=== PATIENT | female | born 1955 | race African-American/Black ===

== ENCOUNTER 2017-06-18 12:07 | Emergency (ER) | payer BC ==
[~2017-06-18] VITALS: Ht 162.6 cm; Wt 77.0 kg
[2017-06-18] MEDS ORDERED: KETOROLAC 60MG/2ML VIAL IM STA (14:23)
[2017-06-18] MEDS ORDERED: METOCLOPRAMIDE HCL 5MG TABLET PO ONE (14:30)
[2017-06-18 14:44] LABS: CLARITY URINE CLEAR (CLEAR); COLOR URINE YELLOW (YELLOW); GLUCOSE URINE NEGATIVE (NEGATIVE); KETONES URINE NEGATIVE (NEGATIVE); LEUKOCYTE ESTERASE URINE 2+ (NEGATIVE); NITRITE URINE NEGATIVE (NEGATIVE); OCCULT BLOOD URINE 1+ (NEGATIVE); PH URINE 5.5 (4.5-8.0); PROTEIN URINE NEGATIVE (NEGATIVE); SPECIFIC GRAVITY URINE 1.019 (1.005-1.030); UROBILINOGEN URINE 0.2 E.U./dL (0.2-1.0)
[2017-06-18 14:50] LABS: BASOPHILS % 0.3 % (0.0-2.0); EOSINOPHILS % 1.3 % (0.0-5.0); HEMATOCRIT. 37.5 % (36.0-48.0); HEMOGLOBIN. 12.5 g/dL (12.0-16.0); LYMPHOCYTES % 37.1 % (20.0-50.0); MEAN CORPUSCULAR VOLUME 81.2 fL (81.0-99.0); MEAN PLATELET VOLUME 8.9 fl (7.4-10.4); MONOCYTES % 8.3 % (2.0-8.0); PLATELET 197 x1000/uL (130-400); RED BLOOD CELL COUNT 4.62 mill/uL (4.2-5.4); RED CELL DISTRIBUTION WIDTH 13.3 % (11.6-14.6)
[2017-06-18 14:56] LABS: INR 1.1; PROTHROMBIN TIME 11.4 sec
[2017-06-18 15:04] LABS: CHLORIDE 105 mEq/L (98-107)
[2017-06-18 15:12] LABS: CARBON DIOXIDE 30 mEq/L (21-32)
[2017-06-18 16:01] VITALS: BP 140/67
== END 2017-06-18 16:07 | disposition home or self-care (01) ==
LOC: ER 12:07
DX: N39.0 Urinary tract infection, site not specified (principal)
CPT/HCPCS: 36415; 80053; 81001; 83690; 85025; 85610; 93005; 96372; 99285; J1885; Z7610; J8597

== ENCOUNTER 2018-10-07 09:35 | Emergency (ER) | payer BC ==
[~2018-10-07] VITALS: Ht 162.6 cm; Wt 74.6 kg
[2018-10-07] MEDS ORDERED: KETOROLAC 60MG/2ML VIAL IM ONE (10:45)
[2018-10-07 12:34] VITALS: BP 140/67
== END 2018-10-07 12:35 | disposition home or self-care (01) ==
LOC: ER 10:14
DX: M54.5 Low back pain (principal); Z90.49 Acquired absence of other specified parts of digestive tract
CPT/HCPCS: 72100; 96372; 99283; J1885

== ENCOUNTER 2020-02-21 09:22 | Emergency (ER) | payer BC, MEDICAID ==
[~2020-02-21] VITALS: Ht 162.6 cm; Wt 75.5 kg
[2020-02-21] MEDS ORDERED: FAMOTIDINE 20MG/2ML VIAL IV ONE (09:45)
[2020-02-21] MEDS ORDERED: SODIUM CHLORIDE 0.9% 1,000 ML IV ONE (09:45)
[2020-02-21] MEDS ORDERED: ONDANSETRON HCL 4MG/2ML INJ IV STA (09:45)
[2020-02-21] MEDS ORDERED: KETOROLAC 30MG/ML VIAL IV STA (09:45)
[2020-02-21 10:09] LABS: BASOPHILS % 0.5 % (0.0-2.0); EOSINOPHILS % 1.6 % (0.0-5.0); HEMATOCRIT. 34.9 % (36.0-48.0); LYMPHOCYTES % 28.3 % (20.0-50.0); MEAN CORPUSCULAR HEMOGLOBIN 28.1 pg (28.0-32.0); MEAN CORPUSCULAR VOLUME 81.7 fL (81.0-99.0); MONOCYTES % 6.7 % (2.0-8.0); NEUTROPHILS % 62.9 % (40.0-76.0); PLATELET 198 x1000/uL (130-400); RED BLOOD CELL COUNT 4.27 mill/uL (4.2-5.4); RED CELL DISTRIBUTION WIDTH 13.1 % (11.6-14.6)
[2020-02-21 10:10] LABS: CLARITY URINE CLOUDY (CLEAR); COLOR URINE YELLOW (YELLOW); KETONES URINE NEGATIVE (NEGATIVE); LEUKOCYTE ESTERASE URINE 3+ (NEGATIVE); NITRITE URINE NEGATIVE (NEGATIVE); OCCULT BLOOD URINE TRACE (NEGATIVE); PROTEIN URINE NEGATIVE (NEGATIVE); SPECIFIC GRAVITY URINE 1.013 (1.005-1.030); UROBILINOGEN URINE 0.2 E.U./dL (0.2-1.0)
[2020-02-21 10:16] LABS: CHLORIDE 111 mEq/L (98-107)
[2020-02-21 10:17] LABS: PROTHROMBIN TIME 11.3 sec (9.6-11.0)
[2020-02-21 12:15] VITALS: BP 146/88
== END 2020-02-21 12:00 | disposition home or self-care (01) ==
LOC: ER 09:22
DX: N39.0 Urinary tract infection, site not specified (principal); R19.7 Diarrhea, unspecified; R11.2 Nausea with vomiting, unspecified; J45.909 Unspecified asthma, uncomplicated; Z90.49 Acquired absence of other specified parts of digestive tract
CPT/HCPCS: 36415; 74176; 80053; 81003; 83690; 85025; 85610; 87086; 96361; 96374; 96375; 99284; J1885; J2405; J3490; J7030

== ENCOUNTER 2020-02-27 11:58 | Emergency (ER) | payer MEDICAID ==
[~2020-02-27] VITALS: Ht 162.6 cm; Wt 159.0 kg
[2020-02-27] MEDS ORDERED: LOPERAMIDE HCL 2MG CAPSULE PO ONE (14:00)
[2020-02-27] MEDS ORDERED: ONDANSETRON 4MG ODT PO ONE (14:00)
[2020-02-27] MEDS ORDERED: FAMOTIDINE 20MG TABLET PO ONE (14:00)
[2020-02-27 15:45] LABS: BASOPHILS % 0.5 % (0.0-2.0); EOSINOPHILS % 0.7 % (0.0-5.0); HEMATOCRIT. 36.8 % (36.0-48.0); HEMOGLOBIN. 12.3 g/dL (12.0-16.0); LYMPHOCYTES % 30.9 % (20.0-50.0); MEAN CORPUSCULAR HEMOGLOBIN 27.5 pg (28.0-32.0); MEAN CORPUSCULAR VOLUME 82.7 fL (81.0-99.0); MEAN PLATELET VOLUME 10.2 fl (7.4-10.4); MONOCYTES % 7.7 % (2.0-8.0); NEUTROPHILS % 60.2 % (40.0-76.0); PLATELET 210 x1000/uL (130-400); RED BLOOD CELL COUNT 4.46 mill/uL (4.2-5.4); RED CELL DISTRIBUTION WIDTH 13.5 % (11.6-14.6)
[2020-02-27 15:45] LABS: CLARITY URINE CLEAR (CLEAR); COLOR URINE DARK YELLOW (YELLOW); KETONES URINE NEGATIVE (NEGATIVE); LEUKOCYTE ESTERASE URINE 2+ (NEGATIVE); NITRITE URINE POSITIVE (NEGATIVE); OCCULT BLOOD URINE NEGATIVE (NEGATIVE); PROTEIN URINE 1+ (NEGATIVE); SPECIFIC GRAVITY URINE 1.021 (1.005-1.030)
[2020-02-27 15:51] LABS: INR 1.1; PROTHROMBIN TIME 12.1 sec (9.6-11.0)
[2020-02-27 16:45] LABS: CHLORIDE 106 mEq/L (98-107)
[2020-02-27 17:34] VITALS: BP 148/72
== END 2020-02-27 17:36 | disposition home or self-care (01) ==
LOC: ER 11:58
DX: N39.0 Urinary tract infection, site not specified (principal); R10.13 Epigastric pain; R19.7 Diarrhea, unspecified; J45.909 Unspecified asthma, uncomplicated; Z90.49 Acquired absence of other specified parts of digestive tract
CPT/HCPCS: 36415; 80053; 81003; 83690; 85025; 85610; 99284; Q0162

== ENCOUNTER 2020-06-14 11:25 | Emergency (ER) | payer MEDICAID, OTHER ==
[~2020-06-14] VITALS: Ht 162.6 cm; Wt 70.0 kg
[2020-06-14] MEDS ORDERED: KETOROLAC 30MG/ML VIAL IM ONE (13:30)
[2020-06-14 15:47] VITALS: BP 160/41
== END 2020-06-14 15:49 | disposition home or self-care (01) ==
LOC: ER 11:48
DX: M25.561 Pain in right knee (principal); Z90.49 Acquired absence of other specified parts of digestive tract
CPT/HCPCS: 73562; 96372; 99283; J1885

== ENCOUNTER 2020-09-04 09:37 | Emergency (ER) | payer OTHER ==
[~2020-09-04] VITALS: Ht 162.6 cm; Wt 76.0 kg
[2020-09-04 09:45] VITALS: BP 136/67
[2020-09-04] MEDS ORDERED: IBUPROFEN 800MG TABLET PO ONE (10:15)
== END 2020-09-04 10:29 | disposition home or self-care (01) ==
LOC: ER 09:37
DX: M25.561 Pain in right knee (principal); Z90.89 Acquired absence of other organs
CPT/HCPCS: 99282

== ENCOUNTER 2023-02-16 10:36 | Emergency (ER) | payer OTHER ==
[~2023-02-16] VITALS: Ht 162.6 cm; Wt 70.0 kg
[2023-02-16 11:13] VITALS: BP 142/67
[2023-02-16] MEDS ORDERED: GUAI-948 MT (13:13)
[2023-02-16] MEDS ORDERED: IBUP-2028 MT (13:13)
== END 2023-02-16 13:30 | disposition home or self-care (01) ==
LOC: ER 11:51
DX: J32.9 Chronic sinusitis, unspecified (principal); R51.9 Headache, unspecified; I10 Essential (primary) hypertension
CPT/HCPCS: 99282